=== PATIENT | female | born 1935 | race Caucasian/White ===

== ENCOUNTER 2016-06-09 15:36 | Emergency (ER) | payer MEDICARE ==
[~2016-06-09] VITALS: Ht 172.7 cm; Wt 77.1 kg
[~2016-06-09 15:36] MED LIST: ADVAIR 100/501 E1 INH; AMOXICILLIN500 MG PO; ANTIVERT/2525 MG; ANTIVERT25 MG; ANTIVERT25 MG PO; ARICEPT10 M1 PO; ASCRIPTIN1 TA1; ASPIRIN ADULT L81 M1; ATIVAN1 MG PO; ATOXIMETIN-B1 CAP; DETROL LA4 MG; MEMANTINE HCL10 MG PO; MULTIPLE VITAMI1 CAP PO; QVAR 80MCG/INH7.3 G1; VICODIN 5/500 505 MG PO
[2016-06-09] MEDS ORDERED: ALPRAZOLAM0.25 M2 PO (16:08)
[2016-06-09 16:10] VITALS: BP 150/74
== END 2016-06-09 18:30 | disposition home or self-care (01) ==
LOC: ED 15:36
DX: S00.211A Abrasion of right eyelid and periocular area, initial encounter (principal); Z90.49 Acquired absence of other specified parts of digestive tract; Z86.73 Personal history of transient ischemic attack (TIA), and cerebral infarction without residual deficits; Z79.82 Long term (current) use of aspirin; Z88.8 Allergy status to other drugs, medicaments and biological substances; W18.09XA Striking against other object with subsequent fall, initial encounter; Y93.89 Activity, other specified; Y92.9 Unspecified place or not applicable; Y99.9 Unspecified external cause status

== ENCOUNTER 2019-10-20 18:41 | Observation (INO) | payer MEDICARE, MEDICAID ==
[~2019-10-20] VITALS: Ht 165.1 cm; Wt 75.0 kg
[~2019-10-20 18:41] MED LIST changes: +ALPRAZOLAM0.25 M2 PO
[2019-10-20 18:42] VITALS: BP 138/59
[2019-10-20 19:03] LABS: BILIRUBIN NEGATIVE (NEGATIVE); CLARITY CLOUDY (CLEAR); COLOR YELLOW (YELLOW); GLUCOSE NEGATIVE (NEGATIVE); KETONE TRACE (NEGATIVE)
[2019-10-20 19:04] LABS: BLOOD 3+ (NEGATIVE); LEUKO ESTERASE 3+ (NEGATIVE); NITRITE NEGATIVE (NEGATIVE); SPECIFIC GRAVITY 1.025 (1.005-1.030); UROBILINOGEN 0.2 E.U./dl (0.2-1.0)
[2019-10-20 19:09] LABS: BACTERIA 1+; EPITHELIAL CELLS 0-2; RBC TNTC rbc/hpf (0-2); WBC TNTC wbc/hpf (0-5)
[2019-10-20 19:45] LABS: BASO # 0.1 10*3/uL (0.0-0.1); BASO % 0.6 % (0.0-1.0); EOS # 0.2 10*3/uL (0.0-0.4); EOS % 2.8 % (1.0-4.0); HEMATOCRIT 35.9 % (37.0-47.0); LYMPH # 2.4 10*3/uL (1.3-4.4); LYMPH % 28.9 % (27.0-41.0); MEAN CELL VOLUME 97.6 fl (81.0-99.0); MEAN CORPUSCULAR HGB 30.2 pg (27.0-31.0); MEAN CORPUSCULAR HGB CONC 30.9 g/dl (33.0-37.0); MEAN PLATELET VOLUME 9.9 fl (9.6-12.3); MONO # 0.7 10*3/uL (0.1-1.0); MONO % 7.9 % (3.0-9.0); NEUT % 59.4 % (47.0-73.0); PLATELET COUNT AUTOMATED 254 10*3/uL (130-400); RED BLOOD COUNT 3.68 10*6/uL (4.10-5.10); RED CELL DISTRI WIDTH 13.4 % (0-14.5); WHITE BLOOD COUNT 8.4 10*3/uL (4.8-10.8)
[2019-10-20 20:01] LABS: ALBUMIN 3.3 gm/dl (3.1-4.5); ALKALINE PHOSPHATASE 114 U/L (45-117); BUN 25 mg/dl (7-24); CHLORIDE 109 mmol/L (98-107); CREATININE 1.22 mg/dL (0.55-1.02); POTASSIUM 4.3 mmol/L (3.5-5.1); SGOT/AST 11 IU/L (3-35); SGPT/ALT 17 U/L (12-78); SODIUM 139 mmol/L (136-145); TOTAL PROTEIN 7.2 gm/dL (6.4-8.2); TROPONIN I < 0.015 ng/ml (<0.045)
[2019-10-20 20:38] VITALS: BP 168/66
[2019-10-20 20:44] LABS: ACT PARTIAL THROMBO TIME 25.9 SECONDS (20.0-32.1); INTERNATIONAL NORM RATIO 0.9 (2.0-3.5)
[2019-10-20 23:25] VITALS: BP 137/63
[2019-10-21] MEDS ORDERED: TYLENOL325 M1 PO ×2 (00:34→02:34)
[2019-10-21] MEDS ORDERED: MEGACE 40400 MG/10 PO (00:35)
[2019-10-21] MEDS ORDERED: METOPROLOL SUCC25 M2 PO (00:35)
[2019-10-21] MEDS ORDERED: VITAMIN C500 M8 PO (00:36)
[2019-10-21] MEDS ORDERED: ZINC50 M4 PO (00:37)
[2019-10-21] MEDS ORDERED: VITAMIN D350 MC2 GT (00:37)
[2019-10-21] MEDS ORDERED: ULTRAM50 MG PO (00:38)
[2019-10-21] MEDS ORDERED: ACETAMINOPHEN325 M2 PO (02:27)
[2019-10-21] MEDS ORDERED: ASPIRIN81 M1 PO (02:28)
[2019-10-21] MEDS ORDERED: LISINOPRIL10 M1 PO (02:29)
[2019-10-21] MEDS ORDERED: B-121000 MCG PO (02:29)
[2019-10-21] MEDS ORDERED: CLOPIDOGREL75 MG PO (02:29)
[2019-10-21] MEDS ORDERED: TWOCAL-HN 240 ML8 OZ PO (02:30)
[2019-10-21] MEDS ORDERED: Pyridostigmine60 MG PO (02:31)
[2019-10-21] MEDS ORDERED: Ipratropium Brom3 ML INH (02:33)
[2019-10-21 06:24] LABS: BASO % 0.5 % (0.0-1.0); EOS # 0.3 10*3/uL (0.0-0.4); EOS % 3.2 % (1.0-4.0); HEMATOCRIT 37.1 % (37.0-47.0); LYMPH # 1.6 10*3/uL (1.3-4.4); LYMPH % 18.1 % (27.0-41.0); MEAN CELL VOLUME 97.9 fl (81.0-99.0); MEAN CORPUSCULAR HGB 30.6 pg (27.0-31.0); MEAN CORPUSCULAR HGB CONC 31.3 g/dl (33.0-37.0); MEAN PLATELET VOLUME 9.9 fl (9.6-12.3); MONO # 0.7 10*3/uL (0.1-1.0); MONO % 7.9 % (3.0-9.0); NEUT % 69.8 % (47.0-73.0); PLATELET COUNT AUTOMATED 234 10*3/uL (130-400); RED BLOOD COUNT 3.79 10*6/uL (4.10-5.10); RED CELL DISTRI WIDTH 13.4 % (0-14.5); WHITE BLOOD COUNT 8.6 10*3/uL (4.8-10.8)
[2019-10-21 06:33] LABS: ALBUMIN 3.1 gm/dl (3.1-4.5); ALKALINE PHOSPHATASE 113 U/L (45-117); BUN 21 mg/dl (7-24); CHLORIDE 109 mmol/L (98-107); CREATININE 0.91 mg/dL (0.55-1.02); POTASSIUM 3.9 mmol/L (3.5-5.1); SGOT/AST 11 IU/L (3-35); SGPT/ALT 15 U/L (12-78); SODIUM 139 mmol/L (136-145); TOTAL PROTEIN 6.9 gm/dL (6.4-8.2)
[2019-10-21 08:00] VITALS: BP 141/64
[2019-10-21 12:00] VITALS: BP 136/74
[2019-10-21 16:00] VITALS: BP 139/94
[2019-10-21 20:00] VITALS: BP 161/71
[2019-10-22] VITALS: BP 152/63
[2019-10-22 06:07] LABS: BUN 26 mg/dl (7-24); CHLORIDE 110 mmol/L (98-107); CREATININE 0.88 mg/dL (0.55-1.02); POTASSIUM 4.2 mmol/L (3.5-5.1); SODIUM 138 mmol/L (136-145)
[2019-10-22 06:14] LABS: BASO % 0.2 % (0.0-1.0); HEMATOCRIT 39.2 % (37.0-47.0); LYMPH # 1.7 10*3/uL (1.3-4.4); LYMPH % 14.2 % (27.0-41.0); MEAN CELL VOLUME 96.3 fl (81.0-99.0); MEAN CORPUSCULAR HGB 30.2 pg (27.0-31.0); MEAN CORPUSCULAR HGB CONC 31.4 g/dl (33.0-37.0); MEAN PLATELET VOLUME 10.6 fl (9.6-12.3); MONO # 0.5 10*3/uL (0.1-1.0); MONO % 4.5 % (3.0-9.0); NEUT # 9.7 10*3/uL (2.3-7.9); NEUT % 80.6 % (47.0-73.0); PLATELET COUNT AUTOMATED 241 10*3/uL (130-400); RED BLOOD COUNT 4.07 10*6/uL (4.10-5.10); RED CELL DISTRI WIDTH 13.2 % (0-14.5); WHITE BLOOD COUNT 12.1 10*3/uL (4.8-10.8)
[2019-10-22 08:00] VITALS: BP 113/90
[2019-10-22] MEDS ORDERED: Vitamin D (1,000 UNI PO (11:55)
[2019-10-22 12:00] VITALS: BP 138/55
== END 2019-10-22 15:33 | disposition other institution (70) ==
LOC: ED 18:41 → EDHOLD 22:01 → 4E 22:01
PROVIDERS: Internal Medicine; Physician Assistant; Student in an Organized Health Care Education/Training Program; ADMIT Family Medicine
DX: S09.90XA Unspecified injury of head, initial encounter (principal); N39.0 Urinary tract infection, site not specified; N17.0 Acute kidney failure with tubular necrosis; D64.9 Anemia, unspecified; R73.9 Hyperglycemia, unspecified; E87.8 Other disorders of electrolyte and fluid balance, not elsewhere classified; E44.0 Moderate protein-calorie malnutrition; R80.9 Proteinuria, unspecified; R31.9 Hematuria, unspecified; R26.2 Difficulty in walking, not elsewhere classified; G93.41 Metabolic encephalopathy; F03.90 Unspecified dementia, unspecified severity, without behavioral disturbance, psychotic disturbance, mood disturbance, and anxiety; E55.9 Vitamin D deficiency, unspecified; W19.XXXA Unspecified fall, initial encounter; Y92.89 Other specified places as the place of occurrence of the external cause; Y93.89 Activity, other specified; Y99.8 Other external cause status

== ENCOUNTER 2020-02-25 15:32 | Emergency (ER) | payer MEDICARE, MEDICAID ==
[~2020-02-25] VITALS: Wt 63.5 kg
[~2020-02-25 15:32] MED LIST changes: +ACETAMINOPHEN325 M2 PO; +ASPIRIN81 M1 PO; +B-121000 MCG PO; +CLOPIDOGREL75 MG PO; +Ipratropium Brom3 ML INH; +LISINOPRIL10 M1 PO; +MEGACE 40400 MG/10 PO; +METOPROLOL SUCC25 M2 PO; +Pyridostigmine60 MG PO; +TWOCAL-HN 240 ML8 OZ PO; +TYLENOL325 M1 PO; +ULTRAM50 MG PO; +VITAMIN C500 M8 PO; +VITAMIN D350 MC2 GT; +Vitamin D (1,000 UNI PO; +ZINC50 M4 PO
[2020-02-25 22:00] VITALS: BP 146/56
== END 2020-02-25 22:29 | disposition short-term general hospital (02) ==
LOC: ED 15:32
DX: S06.5X0A Traumatic subdural hemorrhage without loss of consciousness, initial encounter (principal); U07.1 COVID-19; Z88.8 Allergy status to other drugs, medicaments and biological substances; Z79.899 Other long term (current) drug therapy; Z79.82 Long term (current) use of aspirin; Z98.61 Coronary angioplasty status; Z90.49 Acquired absence of other specified parts of digestive tract; W19.XXXA Unspecified fall, initial encounter; Y93.89 Activity, other specified; Y92.89 Other specified places as the place of occurrence of the external cause; Y99.8 Other external cause status